=== PATIENT | male | born 2000 | race Two or more races ===

== ENCOUNTER 2020-01-29 20:03 | Emergency (ER) | payer OTHER ==
[~2020-01-29] VITALS: Ht 170.2 cm; Wt 63.5 kg
== END 2020-01-29 21:20 | disposition home or self-care (01) ==
LOC: ER 20:03
DX: S05.02XA Injury of conjunctiva and corneal abrasion without foreign body, left eye, initial encounter (principal); W22.8XXA Striking against or struck by other objects, initial encounter; Y93.89 Activity, other specified; Y92.89 Other specified places as the place of occurrence of the external cause; Y99.8 Other external cause status